=== PATIENT | male | born 1970 | race Two or more races ===

== ENCOUNTER 2019-06-15 20:15 | Emergency (ER) | payer OTHER ==
[~2019-06-15] VITALS: Ht 165.1 cm; Wt 111.0 kg
[2019-06-15 21:21] LABS: BASOPHILS # (AUTO) 0.1 X10'3 (0-0.2); BASOPHILS % (AUTO) 0.6 % (0-1); EOSINOPHILS # (AUTO) 0.2 X10'3 (0-0.9); EOSINOPHILS % (AUTO) 2.8 % (0-6); HEMATOCRIT 44.9 % (42.0-52.0); HEMOGLOBIN 15.6 g/dl (14.0-17.9); LYMPHOCYTES # (AUTO) 2.7 X10'3 (1.1-4.8); LYMPHOCYTES % (AUTO) 32.1 % (21-51); MEAN CORPUSCULAR HGB CONC 34.7 g/dL (33.0-36.5); MEAN CORPUSCULAR VOLUME 89.5 FL (78-98); MEAN PLATELET VOLUME 7.8 FL (7.4-10.4); MONOCYTES # (AUTO) 0.8 X10'3 (0-0.9); MONOCYTES % (AUTO) 8.9 % (2-12); NEUTROPHILS # (AUTO) 4.7 X10'3 (1.8-7.7); NEUTROPHILS % (AUTO) 55.6 % (42-75); PLATELET COUNT 164 X10'3 (140-440); RED BLOOD COUNT 5.02 X10'6 (4.70-6.10); RED CELL DISTRIBUTION WIDTH 14.5 % (11.5-14.5); WHITE BLOOD COUNT 8.5 X10'3 (4.5-11.0)
[2019-06-15 21:41] LABS: PARTIAL THROMBOPLASTIN TIME 27 SECONDS (22-32)
[2019-06-15 21:47] LABS: ALANINE AMINOTRANSFERASE 55 U/L (12-78); ALBUMIN 3.5 G/DL (3.4-5.0); ALBUMIN/GLOBULIN RATIO 0.8 (1.1-1.5); ALKALINE PHOSPHATASE 135 IU/L (46-116); ANION GAP 12 (8-16); BILIRUBIN,TOTAL 0.5 MG/DL (0.1-1.0); BLOOD UREA NITROGEN 12 MG/DL (7-18); BUN/CREATININE RATIO 16.4 (5.4-32.0); CALCIUM 8.8 MG/DL (8.5-10.1); CHLORIDE 104 MMOL/L (99-107); CREATININE 0.73 MG/DL (0.60-1.10); SODIUM 139 MMOL/L (135-145); TOTAL CARBON DIOXIDE 22.9 MMOL/L (24-32); eGFR > 90 ML/MIN
[2019-06-15 21:57] LABS: GLUCOSE 206 MG/DL (70-104); POTASSIUM 3.5 MMOL/L (3.5-5.1)
[2019-06-15 22:00] LABS: ASPARTATE AMINO TRANSFERASE 43 U/L (10-37)
[2019-06-15 23:24] LABS: D-DIMER 0.74 MG/L FEU (0-0.50)
[2019-06-15] MEDS ORDERED: iohexol 350MG/ML 100ml bottle IV ONE (23:33)
[2019-06-16 00:11] LABS: HEMOGLOBIN A1C 7.2 % (4.5-6.2)
[2019-06-16 00:34] VITALS: BP 158/97
[2019-06-16] MEDS ORDERED: LISI40TA4 PO (01:13)
[2019-06-16] MEDS ORDERED: METF500T PO (01:13)
[2019-06-16] MEDS ORDERED: FLUT16SP2 BOTHNARES (01:23)
== END 2019-06-16 01:37 | disposition home or self-care (01) ==
LOC: ER 20:15
DX: E11.9 Type 2 diabetes mellitus without complications (principal); I10 Essential (primary) hypertension; K76.9 Liver disease, unspecified; R07.89 Other chest pain; Z79.84 Long term (current) use of oral hypoglycemic drugs; Z79.899 Other long term (current) drug therapy
CPT/HCPCS: 36415; 71045; 71275; 80053; 83036; 83880; 84484; 85025; 85379; 85610; 85730; 93005; 99284; Q9967

== ENCOUNTER 2020-06-03 14:37 | Emergency (ER) | payer MEDICAID ==
[~2020-06-03] VITALS: Ht 172.7 cm; Wt 120.0 kg
[~2020-06-03 14:37] MED LIST: FLUT16SP2 BOTHNARES
[2020-06-03 15:22] LABS: BASOPHILS # (AUTO) 0.1 X10'3 (0-0.2); BASOPHILS % (AUTO) 0.7 % (0-1); EOSINOPHILS # (AUTO) 0.2 X10'3 (0-0.9); EOSINOPHILS % (AUTO) 2.6 % (0-6); HEMATOCRIT 47.7 % (42.0-52.0); HEMOGLOBIN 16.4 g/dl (14.0-17.9); LYMPHOCYTES # (AUTO) 2.9 X10'3 (1.1-4.8); LYMPHOCYTES % (AUTO) 37.2 % (21-51); MEAN CORPUSCULAR HEMOGLOBIN 30.9 PG (27.0-31.0); MEAN CORPUSCULAR HGB CONC 34.4 g/dL (33.0-36.5); MEAN CORPUSCULAR VOLUME 89.8 FL (78-98); MEAN PLATELET VOLUME 8.7 FL (7.4-10.4); MONOCYTES # (AUTO) 0.6 X10'3 (0-0.9); MONOCYTES % (AUTO) 7.2 % (2-12); NEUTROPHILS # (AUTO) 4.1 X10'3 (1.8-7.7); NEUTROPHILS % (AUTO) 52.3 % (42-75); PLATELET COUNT 170 X10'3 (140-440); RED BLOOD COUNT 5.31 X10'6 (4.70-6.10); RED CELL DISTRIBUTION WIDTH 14.2 % (11.5-14.5); WHITE BLOOD COUNT 7.8 X10'3 (4.5-11.0)
[2020-06-03 15:33] LABS: TOTAL CARBON DIOXIDE 25.1 MMOL/L (24-32)
[2020-06-03 15:55] LABS: ALANINE AMINOTRANSFERASE 65 U/L (12-78); ALBUMIN 3.8 G/DL (3.4-5.0); ALKALINE PHOSPHATASE 139 IU/L (46-116); ANION GAP 8 (8-16); ASPARTATE AMINO TRANSFERASE 48 U/L (10-37); BILIRUBIN,TOTAL 0.7 MG/DL (0.1-1.0); BLOOD UREA NITROGEN 15 MG/DL (7-18); BUN/CREATININE RATIO 18.5 (5.4-32.0); CALCIUM 9.2 MG/DL (8.5-10.1); CHLORIDE 101 MMOL/L (99-107); CREATININE 0.81 MG/DL (0.60-1.10); POTASSIUM 4.3 MMOL/L (3.5-5.1); SODIUM 134 MMOL/L (135-145); TOTAL PROTEIN 7.8 G/DL (6.4-8.2); eGFR > 90 ML/MIN
[2020-06-03 15:58] LABS: GLUCOSE 466 MG/DL (70-104)
[2020-06-03] MEDS ORDERED: insulin regular, human 10 units/0.1 ml syringe SQ ONE (17:45)
[2020-06-03] MEDS ORDERED: normal saline 1000ML IV soln IVB ONE ×2 (17:50→18:35)
[2020-06-03 18:39] VITALS: BP 140/91
[2020-06-03 18:58] LABS: CLARITY,URINE CLEAR (Clear); COLOR,URINE YELLOW (Yellow); GLUCOSE, URINE >=1000 mg/dl (Neg); KETONES,URINE 40 mg/dl (Neg); LEUKOCYTE ESTERASE ,URINE NEGATIVE (Neg); NITRITES, URINE NEGATIVE (Neg); OCCULT BLOOD,URINE NEGATIVE (Neg); PH,URINE 5.5 (4.8-8.0); PROTEIN,URINE NEGATIVE (Neg); UROBILINOGEN,URINE 0.2 E.U/dL (0.2-1.0)
[2020-06-03 19:12] LABS: UA COLLECTION TYPE URINAL
[2020-06-03] MEDS ORDERED: METF500T PO (19:49)
[2020-06-03 20:05] LABS: BACTERIA,URINE NONE SEEN /HPF (Neg); RBC,URINE NONE SEEN /HPF (0-2); SQUAMOUS EPITHELIAL CELL,UR FEW /LPF (FEW); WBC,URINE 0-4 /HPF (0-4)
== END 2020-06-03 20:16 | disposition home or self-care (01) ==
LOC: ER 14:37
DX: E11.65 Type 2 diabetes mellitus with hyperglycemia (principal); R06.02 Shortness of breath; R42 Dizziness and giddiness; R20.0 Anesthesia of skin; Z79.899 Other long term (current) drug therapy
CPT/HCPCS: 36415; 80053; 81001; 82948; 85025; 93005; 96360; 96372; 99284; J1815; J7030

== ENCOUNTER → 2021-04-30 | Emergency (ER) | payer MEDICAID ==
[~2021-04-30] VITALS: Ht 165.1 cm; Wt 100.0 kg
[~2021-04-30] MED LIST changes: +DIAZ-351 PO; +METH-797 PO; +diazepam inj 5 MG/ML inj. IV ONE; +fentaNYL/PF 50MCG/1 ML 2ML syringe IV ONE; +iohexol 300mg/ml 100ml inj. ONE; +morphine 4 MG/ML inj SYRINge IV PRN; +ondansetron/PF 4mg/2ml inj IV ONE
[2021-04-30 00:40] VITALS: BP 164/102
--- NOTE | 2021-04-30 05:05 | NUR ---
CT NOTIFIED THAT PATIENT HAS IV AND HAS BEEN MEDICATED FOR PAIN RELEIF
== END | disposition home or self-care (01) ==
LOC: ER 00:04
DX: S39.011A Strain of muscle, fascia and tendon of abdomen, initial encounter (principal); R10.84 Generalized abdominal pain; K76.9 Liver disease, unspecified; I10 Essential (primary) hypertension; Z72.89 Other problems related to lifestyle; Z79.899 Other long term (current) drug therapy; X58.XXXA Exposure to other specified factors, initial encounter; Y93.89 Activity, other specified; Y92.89 Other specified places as the place of occurrence of the external cause; Y99.8 Other external cause status
CPT/HCPCS: 74177; 96374; 96375; 99285; J2270; J2405; J3360; Q9967

== ENCOUNTER 2022-11-27 14:48 | Emergency (ER) | payer MEDICAID ==
[~2022-11-27] VITALS: Ht 165.1 cm; Wt 104.5 kg
[~2022-11-27 14:48] MED LIST changes: -diazepam inj 5 MG/ML inj. IV ONE; -fentaNYL/PF 50MCG/1 ML 2ML syringe IV ONE; -iohexol 300mg/ml 100ml inj. ONE; -morphine 4 MG/ML inj SYRINge IV PRN; -ondansetron/PF 4mg/2ml inj IV ONE
[2022-11-27 15:21] VITALS: BP 153/81
[2022-11-27] MEDS ORDERED: HYDR-3965 PO (16:42)
[2022-11-27] MEDS ORDERED: HYDROcodone/acetaminophen 5mg/325mg tablet PO ONE (17:00)
--- NOTE | 2022-11-27 17:18 | NUR ---
PT LEFT PRIOR TO RECEIVING CRUTCHES
--- NOTE | 2022-11-27 17:19 | NUR ---
ATTEMPTED TO CONTACT PT AND PT'S EMERGENCY CONTACT REGARDING LEAVING PRIOR TO RECEIVING CRUTCHES. PT DID NOT ANSWER. WILL ATTEMPT TO CONTACT AGAIN
--- NOTE | 2022-11-27 17:28 | NUR ---
PT CONTACTED REGARDING CRUTCHES. PT INSTRUCTED TO CONTACT NURSE ONCE PT ARRIVES AT HOSPITAL TO POT OPERATOR CRUTCHES
--- NOTE | 2022-11-27 17:52 | NUR ---
PT RETURNED TO ER. PT GIVEN GARRY WRAP AND CRUTCHES.
== END 2022-11-27 17:30 | disposition home or self-care (01) ==
LOC: ER 14:49
DX: S86.912A Strain of unspecified muscle(s) and tendon(s) at lower leg level, left leg, initial encounter (principal); M25.562 Pain in left knee; X58.XXXA Exposure to other specified factors, initial encounter; Y93.89 Activity, other specified; Y92.89 Other specified places as the place of occurrence of the external cause; Y99.8 Other external cause status
CPT/HCPCS: 73564; 99283